=== PATIENT | male | born 1950 | race Caucasian/White ===

== ENCOUNTER → 2022-03-12 12:51 | Outpatient (CLI) | payer OTHER, SELFPAY ==
--- NOTE | 2022-03-12 12:54 | DI.MRI.S_ITS ---
PROCEDURE: MR LUMBAR SPINE WO CON INDICATIONS: RADICULOPATHY LUMBAR REGION TECHNIQUE: Noncontrast sagittal T1 spin echo and T2 fast echo, sagittal STIR, and T2 fast spin echo through the lumbar spine. In cases with scoliosis, additional coronal T2 fast spin echo may be performed. COMPARISON: None. FINDINGS: Image quality: Excellent. Alignment and Curvature: There is normal bony alignment. Bone Marrow: Marrow is of normal overall signal. No acute vertebral body compression fractures. Scattered vertebral hemangiomas noted Spinal Cord: Conus medullaris terminates at the L1 level. Visualized cord demonstrates normal signal and size. Paraspinous Soft Tissues: No paravertebral masses. T12-L1: Normal appearance. L1-L2: Disc space narrowing with circumferential disc bulge results in mild central stenosis. No foraminal stenosis L2-L3: Disc height is preserved. No central or stenosis. Moderate right and mild left foraminal stenosis L3-L4: Disc space narrowing present. Hypertrophic facet joints and ligamentum flavum laxity combined result in moderate central stenosis. Moderate bilateral foraminal stenosis, left greater than right L4-L5: Disc space narrowing with circumferential disc bulge and hypertrophic facet joints results in [id number]-ly-[id number] central stenosis. Moderate bilateral foraminal stenosis L5-S1: Disc space is maintained. No central or foraminal stenosis. IMPRESSION: Multilevel degenerative disc disease and arthropathy results in varying degrees of central and foraminal stenosis including moderate central stenosis L3-4 Approved by: Alen Yang M.D. on 03/12/2022 at 15:44
== END ==
PROVIDERS: Family Provider Internal Medicine; PCP Internal Medicine; Referring Provider Physical Medicine & Rehabilitation; Visit Provider Physical Medicine & Rehabilitation
DX: M51.16 Intervertebral disc disorders with radiculopathy, lumbar region (principal); M47.26 Other spondylosis with radiculopathy, lumbar region; M48.061 Spinal stenosis, lumbar region without neurogenic claudication
CPT/HCPCS: 72148